=== PATIENT | female | born 1980 | race African-American/Black ===

== ENCOUNTER 2018-11-10 14:08 | Emergency (ER) | payer OTHER ==
[2018-11-10 14:18] VITALS: BP 116/47; PULSE 71; TEMP 98.1; BMI 36.8
[2018-11-10] MEDS ORDERED: PANTOPRAZOLE SODIUM 40 MG in SODIUM CHLORIDE 100 ML IVPB ONE (16:09)
[2018-11-10] MEDS ORDERED: morphine CARPU-JECT 2 MG/1 ML DISP.SYRIN IVPUSH ONE (16:09)
[2018-11-10] MEDS ORDERED: ONDANSETRON 4 MG/2 ML VIAL IVPUSH ONE (16:09)
[2018-11-10] MEDS ORDERED: MORPHINE SULFATE 2 MG/ML VIAL ONE (16:21)
[2018-11-10] MEDS ORDERED: ONDANSETRON 4 MG/2 ML VIAL ONE (16:21)
[2018-11-10] MEDS ORDERED: PANTOPRAZOLE SODIUM 40 MG/100 ML BAG IVPB ONE (16:22)
--- NOTE | 2018-11-10 16:29 | PDOC ---
History of Present Illness <Malissa Flores - Last Filed: 11/10/18 18:35> - General History Source: Patient Exam Limitations: No Limitations - History of Present Illness Travel History: No Initial Comments: 11/10/18 16:25 38 y/o female presents to the ED with c/o vaginal spotting 2 weeks ago although her menses came on 10/17/18. Pt states then did a test on 10/28 which was +. Pt then yesterday began to experience epigastric burning associated with lower abd cramping and scant light brown vaginal discharge. pt denies fever, weakness, urinary complaints, or abs distention. Timing/Duration: reports: constant Quality: reports: mild, cramping, sharpness Abdominal Pain Onset Location: reports: epigastric, suprapubic (mid) Pain Radiation: reports: no radiation Activities at Onset: reports: none Aggravating Factors: improves with: None Alleviating Factors: improves with: None <Maranda Whitten - Last Filed: 11/10/18 18:43> - General Chief Complaint: Vaginal Bleeding Stated Complaint: STOMACH / BACK PAIN Time Seen by Provider: 11/10/18 15:58 Past History <Malissa Flores - Last Filed: 11/10/18 18:35> - Travel Traveled outside of the country in the last 30 days: No Close contact w/someone who was outside of country & ill: No - Past Medical History COPD: No - Reproductive History LMP Normal: No Is Patient Now?: Yes (?) Uterine Fibroids: No - Suicide/Smoking/Psychosocial Hx Smoking History: Never smoked Patient Lives Alone: No Lives with/in: spouse/SO <Maranda Whitten - Last Filed: 11/10/18 18:43> - Past Medical History Allergies/Adverse Reactions: Allergies Allergy/AdvReac Type Severity Reaction Status Date / Time tramadol Allergy Verified 11/10/18 18:41 iv contrast Allergy Uncoded 11/10/18 18:41 Home Medications: Ambulatory Orders NK [No Known Home Medication] 11/10/18 Review of Systems - Review of Systems Able to Perform ROS?: Yes Constitutional: No: Symptoms Reported HEENTM: No: Symptoms Reported Respiratory: No: Symptoms reported Cardiac (ROS): No: Symptoms Reported ABD/GI: Yes: Nausea, Indigestion, Abdominal cramping : Yes: Discharge Musculoskeletal: No: Symptoms Reported Integumentary: No: Symptoms Reported Neurological: No: Symptoms reported <Maranda Whitten - Last Filed: 11/10/18 18:43> *Physical Exam - Vital Signs Last Vital Signs Temp Pulse Resp BP Pulse Ox 98.1 F 71 16 116/47 L 100 11/10/18 14:15 11/10/18 14:15 11/10/18 14:15 11/10/18 14:15 11/10/18 14:15 <Malissa Flores - Last Filed: 11/10/18 18:35> - Vital Signs Last Vital Signs Temp Pulse Resp BP Pulse Ox 98.1 F 71 16 116/47 L 100 11/10/18 14:15 11/10/18 14:15 11/10/18 14:15 11/10/18 14:15 11/10/18 14:15 - Physical Exam General Appearance: Yes: Nourished, Appropriately Dressed. No: Apparent Distress HEENT: positive: Pale Conjunctivae Neck: positive: Normal Thyroid, Supple Respiratory/Chest: positive: Lungs Clear, Normal Breath Sounds. negative: Respiratory Distress, Accessory Muscle Use Cardiovascular: positive: Regular Rhythm, Regular Rate. negative: Murmur Gastrointestinal/Abdominal: positive: Soft, Tenderness (midsuprapubic and epigastric tenderness) Musculoskeletal: negative: CVA Tenderness Extremity: positive: Normal Capillary Refill. negative: Pedal Edema Integumentary: positive: Normal Color, Warm, Moist Neurologic: positive: Normal Mood/Affect, Motor Strength 5/5 (ambulatory) <Maranda Whitten - Last Filed: 11/10/18 18:43> ED Treatment Course - LABORATORY CBC & Chemistry Diagram: 11/10/18 16:14 11/10/18 16:14 - ADDITIONAL ORDERS Additional order review: Laboratory Results 11/10/18 11/10/18 16:14 16:14 Sodium 134 L Potassium 4.9 Chloride 106 Carbon Dioxide 24 Anion Gap 5 L BUN 9 Creatinine 0.6 Creat Clearance w eGFR 112.49 Random Glucose 87 Calcium 8.6 Total Bilirubin 0.4 AST 75 H ALT 55 Alkaline Phosphatase 104 Total Protein 7.7 Albumin 3.2 L Lipase 192 Beta HCG, Quant 35723.3 Urine Color Yellow Urine Appearance Clear Urine pH 7.0 Ur Specific [place] 1.019 Urine Protein Negative Urine Glucose (UA) Negative Urine Ketones Negative Urine Blood 2+ H Urine Nitrite Negative Urine Bilirubin Negative Urine Urobilinogen 1.0 Ur Leukocyte Esterase Negative Urine WBC (Auto) 2 Urine RBC (Auto) 10.7 Urine Casts (Auto) 2 U Epithel Cells (Auto) 6.7 Urine Bacteria (Auto) 86.544 11/10/18 16:14 RBC 3.44 L MCV 78.5 L MCHC 33.2 RDW 19.4 H MPV 8.0 Neutrophils % 66.9 Lymphocytes % 22.0 Monocytes % 9.7 Eosinophils % 1.1 Basophils % 0.3 - Medications Given in the ED: ED Medications Discontinued Medications Generic Name Dose Route Start Last Admin Trade Name Freq PRN Reason Stop Dose Admin Pantoprazole Sodium 40 mg/ 100 mls @ 200 mls/hr 11/10/18 16:09 11/10/18 16:33 Sodium Chloride IVPB 11/10/18 16:38 200 mls/hr ONCE ONE Administration Morphine Sulfate 2 mg 11/10/18 16:09 11/10/18 16:32 Morphine Injection - IVPUSH 11/10/18 16:10 2 mg ONCE ONE Administration Ondansetron HCl 4 mg 11/10/18 16:09 11/10/18 16:33 Zofran Injection IVPUSH 11/10/18 16:10 4 mg ONCE ONE Administration <Malissa Flores - Last Filed: 11/10/18 18:35> - LABORATORY CBC & Chemistry Diagram: 11/10/18 16:14 11/10/18 16:14 - RADIOLOGY Radiology Studies Ordered: Category Date Time Status TRANSVAGINAL ULTRASOUND US [US] Stat Ultrasound 11/10/18 16:09 Ordered <Maranda Whitten - Last Filed: 11/10/18 18:43> Medical Decision Making - Medical Decision Making The patient was seen and evaluated in conjunction with midlevel provider under my direct supervision, ancillary studies were reviewed. I agree with the plan as outlined by LILIAM Whitten. HPI, workup/dispo as outlined. VS reviewed, wnl. TVUS with left CL ovarian cyst, no IUP, no pelvic FF beta hcg >28,000 could be passing her POC. called to Dr Beckford and discussed case repeat beta hcg check in 2 days, outpatient followup, bleeding precautions provided. 11/10/18 18:35 11/10/18 18:37 <Malissa Flores - Last Filed: 11/10/18 18:35> - Medical Decision Making 11/10/18 16:30 CC: abd pain with vag spotting and nausea Exam: scant light brown discharge noted w/ mid suprapubic tenderness and epigastric tenderness on exam Plan: labs, urine, protonix, ms04, and u/s 11/10/18 17:41 Small to moderate amount of fluid is seen with the endometrial canal. Endometrial thickness is measuring 0.6 tenderness. No discrete myometrial abnormality is noted. Over in uterine size approximately 12 x 7 x 6 cm. 1.3 left ovarian follicle cyst is noted. Right ovary appears unremarkable. No evidence of torsion intensity 70%. No free intraperitoneal fluid visualized in the lower pelvis. 11/10/18 17:41 Laboratory Tests 11/10/18 16:14 WBC 4.5 Hgb 9.0 L RDW 19.4 H Absolute Neuts (auto) 3.0 11/10/18 18:40 Laboratory Tests 11/10/18 11/10/18 16:14 16:14 Sodium 134 L Potassium 4.9 Chloride 106 Carbon Dioxide 24 Anion Gap 5 L BUN 9 Creatinine 0.6 Creat Clearance w eGFR 112.49 Random Glucose 87 Calcium 8.6 Total Bilirubin 0.4 AST 75 H ALT 55 Alkaline Phosphatase 104 Total Protein 7.7 Albumin 3.2 L Lipase 192 Beta HCG, Quant 28289.3 Urine Blood 2+ H Urine Nitrite Negative Urine Bilirubin Negative Urine Urobilinogen 1.0 Ur Leukocyte Esterase Negative Urine WBC (Auto) 2 Urine RBC (Auto) 10.7 Urine Casts (Auto) 2 U Epithel Cells (Auto) 6.7 Urine Bacteria (Auto) 86.544 Case discussed with [facility] [facility] Dr. Beckford who states the cyst is secondary to a corpus luteum stating the patient was approximately 5-6 weeks based on history of present illness and laboratory findings. He is not concerned with the beta count of 28,000 stating likely due to spotting versus passage of large clots or tissue. He offered patient to follow-up in the clinic but will have patient return to the ED in 48 hours instead. Patient also be discharged home with Percocet and recommendations to return to ED sooner if symptoms worsen <Maranda Whitten - Last Filed: 11/10/18 18:43> *DC/Admit/Observation/Transfer <SandraMalissa Michael - Last Filed: 11/10/18 18:35> <Maranda Whitten - Last Filed: 11/10/18 18:43> Diagnosis at time of Disposition: Abdominal pain - Discharge Dispostion Disposition: HOME Condition at time of disposition: Improved - Referrals Referrals: Robert Beckford MD [Staff Physician] - - Patient Instructions Printed Discharge Instructions: DI for Abdominal Pain-Adult Additional Instructions: Please return here 48 hours for repeat ultrasound and lab work. I've also referred due to [facility] for future management. If your symptoms worsen prior to 48 hours please return directly to the ER
[2018-11-10 16:41] LABS: EPI CELLS 6.7 /HPF (0-5); HYALINE CASTS 2 /hpf (0-8); URINE APPEARANCE CLEAR; URINE BACTERIA 86.544 /hpf (NEGATIVE); URINE BILIRUBIN NEGATIVE (NEGATIVE); URINE COLOR YELLOW; URINE GLUCOSE (UA) NEGATIVE (NEGATIVE); URINE KETONE NEGATIVE (NEGATIVE); URINE LEUK ESTERASE NEGATIVE (NEGATIVE); URINE NITRITE NEGATIVE (NEGATIVE); URINE PROTEIN NEGATIVE (NEGATIVE); URINE WBC 2 /hpf (0-5)
[2018-11-10 16:49] LABS: BASO % 0.3 % (0-2.0); EOS % 1.1 % (0-4.5); HEMATOCRIT 27.1 % (32.4-45.2); MCH 26.1 pg (25.7-33.7); MCHC 33.2 g/dl (32.0-36.0); MEAN CELL VOLUME 78.5 fl (80-96); MONO % 9.7 % (3.8-10.2); NEUT % 66.9 % (42.8-82.8); PLATELET COUNT 221 K/MM3 (134-434); RBC 3.44 M/mm3 (3.60-5.2); RDW 19.4 % (11.6-15.6); WHITE BLOOD COUNT 4.5 K/mm3 (4.0-10.0)
[2018-11-10 17:41] LABS: ALBUMIN 3.2 g/dl (3.4-5.0); ALK PHOS 104 U/L (45-117); ANION GAP 5 MMOL/L (8-16); BILIRUBIN,TOTAL 0.4 mg/dL (0.2-1); BLOOD UREA NITROGEN 9 mg/dL (7-18); CALCIUM 8.6 mg/dL (8.5-10.1); CHLORIDE 106 mmol/L (98-107); CO2 24 mmol/L (21-32); CREATININE 0.6 mg/dL (0.55-1.3); GLUCOSE,RANDOM 87 mg/dL (74-106); LIPASE 192 U/L (73-393); POTASSIUM 4.9 mmol/L (3.5-5.1); SGOT/AST 75 U/L (15-37); SGPT/ALT 55 U/L (13-61); SODIUM 134 mmol/L (136-145); TOT PROT 7.7 g/dl (6.4-8.2)
[2018-11-10 18:11] LABS: URINE RBC 10.7 /hpf (0-4)
== END 2018-11-10 18:52 | disposition home or self-care (01) ==
LOC: JER 14:08
PROC: 3E033GC Introduction of Other Therapeutic Substance into Peripheral Vein, Percutaneous Approach (ICD-10-PCS; principal; 2018-11-10)
PROC: 3E033NZ Introduction of Analgesics, Hypnotics, Sedatives into Peripheral Vein, Percutaneous Approach (ICD-10-PCS; 2018-11-10)
PROC: 3E033GC Introduction of Other Therapeutic Substance into Peripheral Vein, Percutaneous Approach (ICD-10-PCS; 2018-11-10)
DX: O26.891 Other specified pregnancy related conditions, first trimester (principal); O34.81 Maternal care for other abnormalities of pelvic organs, first trimester; N83.12 Corpus luteum cyst of left ovary; Z3A.01 Less than 8 weeks gestation of pregnancy
CPT/HCPCS: 36415; 76830-TC; 80053; 81003; 83690; 84702; 85025; 86850; 86900; 86901; 87086; 99283-25

== ENCOUNTER 2018-11-12 21:08 | Emergency (ER) | payer OTHER ==
[2018-11-12 21:23] VITALS: BP 123/54; PULSE 74; TEMP 98.4; BMI 36.8
--- NOTE | 2018-11-12 21:24 | PDOC ---
Rapid Medical Evaluation Time Seen by Provider: 11/12/18 21:21 Medical Evaluation: Allergies Allergy/AdvReac Type Severity Reaction Status Date / Time tramadol Allergy Verified 11/10/18 18:41 iv contrast Allergy Uncoded 11/10/18 18:41 11/12/18 21:22 Pt presents to the ED for repeat Beta hcg testing and transvaginal US after probable miscarriage two days ago Exam: ambulatory, nad orders: beta hcg, transvaginal us Pt to proceed to the ED for further evaluation Discharge Disposition - Diagnosis Abdominal pain - Referrals - Patient Instructions - Post Discharge Activity
[2018-11-12] MEDS ORDERED: ONDANSETRON *ODT* 4 MG TABLET SL ONE (22:31)
[2018-11-12] MEDS ORDERED: ACETAMINOPHEN 500 MG TABLET (FP) PO ONE (22:31)
--- NOTE | 2018-11-12 22:40 | PDOC ---
History of Present Illness - General Chief Complaint: Pain Stated Complaint: HERE FOR REPEAT ULTRA SOUND AND BLOODWORK Time Seen by Provider: 11/12/18 21:21 History Source: Patient, Old Records Exam Limitations: No Limitations - History of Present Illness Travel History: No Initial Comments: 11/12/18 22:39 HISTORY OF PRESENT ILLNESS: This is a 38-year-old with a last menstrual period of "middle of September"who presents emergency department for repeat beta and ultrasound testing. Patient was seen and evaluated on 11/10 and was noted to have beta of 28,000 without IUP seen on ultrasound. Patient reports that approximately 10 days ago she experienced some heavy vaginal bleeding with clots. She reports the bleeding slowed down now mild spotting which does not require the use of menstrual pads. No recent travel or sick contacts. PAST MEDICAL HISTORY: Denies past medical history SURGICAL HISTORY: Denies ALLERGIES: No known drug allergies REVIEW OF SYSTEMS General/Constitutional: Denies fever or chills. Denies weakness, weight change. HEENT: Denies change in vision. Denies ear pain or discharge. Denies sore throat. Cardiovascular: Denies chest pain or shortness of breath. Respiratory: Denies cough, wheezing, or hemoptysis. Gastrointestinal: Denies nausea, vomiting, diarrhea or constipation. Denies rectal bleeding. Genitourinary: Denies dysuria, frequency, or change in urination. Musculoskeletal: Denies joint or muscle swelling or pain. Denies neck or back pain. Skin and breasts: Denies rash or easy bruising. Neurologic: Denies headache, vertigo, loss of consciousness, or loss of sensation. Psychiatric: Denies depression or anxiety. Endocrine: Denies increased thirst. Denies abnormal weight change. Hematologic/Lymphatic: Denies anemia, easy bleeding, or history of blood clots. Allergic/Immunologic: Denies hives or skin allergy. Denies latex allergy. PHYSICAL EXAM General Appearance: Well-appearing, appropriately dressed. No apparent distress , no intoxication. HEENT: EOMI, PERRLA, normal ENT inspection, normal voice, TMs normal, pharynx normal. No conjunctival pallor. No photophobia, scleral icterus. Neck: Supple. Trachea midline. No tenderness, rigidity, carotid bruit, stridor , lymphadenopathy, or thyromegaly. Respiratory/Chest: Lungs CTAB. No shortness of breath, chest tenderness, respiratory distress, accessory muscle use. No crackles, rales, rhonchi, stridor , wheezing, dullness Cardiovascular: RRR. S1, S2. No JVD, murmur, bradycardia, tachycardia. Vascular Pulses: Dorsalis-Pedis (R): 2+, Dorsalis-Pedis (L): 2+ Gastrointestinal/Abdominal: Normal bowel sounds. Abdomen soft, non-distended. No tenderness or rebound tenderness. No organomegaly, pulsatile mass, guarding, hernia, hepatomegaly, splenomegaly. Lymphatic: No adenopathy, tenderness. Musculoskeletal/Extremities: Normal inspection. FROM of all extremities, normal capillary refill. Pelvis Stable. No CVA tenderness. No tenderness to extremities, pedal edema, swelling, erythema or deformity. Integumentary: Appropriate color, dry, warm. No cyanosis, erythema, jaundice or rash Neurologic: barrel straightener II-XII intact. Fully oriented, alert. Appropriate mood/affect. Motor strength 5/5. No appreciable EOM palsy, facial droop or sensory deficit. 11/13/18 19:49 Past History - Past Medical History Allergies/Adverse Reactions: Allergies Allergy/AdvReac Type Severity Reaction Status Date / Time tramadol Allergy Verified 11/12/18 21:23 iv contrast Allergy Uncoded 11/12/18 21:23 Home Medications: Ambulatory Orders Oxycodone HCl/Acetaminophen [Percocet 5-325 mg Tablet] 1 - 2 tab PO Q6H PRN #12 tab MDD 4 11/10/18 Asthma: Yes COPD: No - Reproductive History Uterine Fibroids: No - Suicide/Smoking/Psychosocial Hx Smoking History: Never smoked *Physical Exam - Vital Signs Last Vital Signs Temp Pulse Resp BP Pulse Ox 98.4 F 74 18 123/54 L 100 11/12/18 21:21 11/12/18 21:21 11/12/18 21:21 11/12/18 21:21 11/12/18 21:21 Medical Decision Making - Medical Decision Making 11/12/18 22:39 A/P: 38-year-old woman with lower abdominal cramping for 3 days Ultrasound performed 11/10/2018: No intrauterine gestation noted. 1.3 cm left ovarian follicles/cyst is noted. Ultrasound performed 11/12/18: An irregular intrauterine gestational sac is noted within the lower uterine segment containing a small amount of intraluminal debris. No definite yolk sac or pole is visualized. Beta hCG on was 28,468. Repeat beta hCG is currently pending. 11/12/18 22:54 Repeat beta hCG 25,980. 11/12/18 23:[address] cortes of [employer] [facility]. She recommends patient to return to [facility] for repeat blood an ultrasound. No need for intervention at this time. I will discharge the patient home. I discussed the physical exam findings, ancillary test results and final diagnoses with the patient. I answered all of the patient's questions. The patient was satisfied with the care received and felt comfortable with the discharge plan and treatment plan. The patient will call their primary care physician within 24 hours to arrange follow-up and will return to the Emergency Department with any new, persistent or worsening symptoms. *DC/Admit/Observation/Transfer Diagnosis at time of Disposition: Abdominal pain Qualifiers: Abdominal location: lower abdomen, unspecified Qualified Code(s): R10.30 - Lower abdominal pain, unspecified - Discharge Dispostion Disposition: HOME Condition at time of disposition: Stable Decision to Admit order: No - Referrals Referrals: Robert Beckford MD [Staff Physician] - - Patient Instructions Additional Instructions: Return to emergency department or to [facility] office in 2 days for repeat laboratory testing and ultrasound. Return to the emergency department sooner if you have bleeding that soaks more than 2 pads per hour. Thank you very much for choosing us to provide your emergent health care needs. - Post Discharge Activity
[2018-11-12] MEDS ORDERED: ACETAMINOPHEN 325 MG TABLET (FP) ONE (22:44)
[2018-11-12] MEDS ORDERED: ONDANSETRON *ODT* 4 MG TABLET ONE (22:45)
== END 2018-11-13 00:42 | disposition home or self-care (01) ==
LOC: JER 21:08
DX: O36.80X0 Pregnancy with inconclusive fetal viability, not applicable or unspecified (principal); R10.9 Unspecified abdominal pain; N83.202 Unspecified ovarian cyst, left side
CPT/HCPCS: 36415; 76817-TC; 84702; 99282-25; Q0162